=== PATIENT | male | born 1990 | race Caucasian/White ===

== ENCOUNTER → 2016-12-22 | Outpatient (CLI) | payer OTHER ==
[~2016-12-22] MED LIST: AMIT25TA9 PO; CHOL200010 PO; MULT-506 PO; TOPI50TA16 PO
[2016-12-22 12:06] LABS: BASO % 0.5 %; BASO ABS # 0.03 K/uL (0-0.2); COMPLETE YES; EOS % 1.9 %; HEMATOCRIT 40.3 % (42-52); IG% 0.2 %; LYMPH % 26.4 %; LYMPH ABS # 1.53 K/uL (1.2-3.4); MEAN CELL VOLUME 88.8 fL (80-100); MEAN CORPUSCULAR HEMOGLOBIN 30.4 pg (25-34); MEAN CORPUSCULAR HGB CONC 34.2 g/dl (32-36); MEAN PLATELET VOLUME 10.5 fL (7.4-10.4); MONO % 11.4 %; NEUT % 59.6 %; PLATELET COUNT 304 K/uL (130-400); RED BLOOD COUNT 4.54 M/uL (4.7-6.1); WHITE BLOOD COUNT 5.79 K/uL (4.8-10.8)
[2016-12-22 12:56] LABS: ALT/SGPT 16 U/L (12-78); AST/SGOT 8 U/L (15-37); BLOOD UREA NITROGEN 17 mg/dl (7-18); BUN/CREATININE RATIO 17.8 (10-20); CALCIUM 8.7 mg/dl (8.5-10.1); CARBON DIOXIDE 20 mmol/L (21-32); CHLORIDE 109 mmol/L (98-107); CREATININE 0.95 mg/dl (0.60-1.40); GLUCOSE 98 mg/dl (70-99); SODIUM 140 mmol/L (136-145)
[2016-12-22 13:07] LABS: ALB/GLOB RATIO 1.5 (0.9-2); ALKALINE PHOSPHATASE 73 U/L (45-117); THYROID STIMULATING HORMONE 0.718 uIu/ml (0.300-4.500)
[2016-12-22 15:24] LABS: LYME DISEASE AB IGG NEG (NEG); LYME DISEASE AB IGM NEG (NEG)
== END | disposition home or self-care (01) ==
LOC: C.LABPVFM 07:42
PROVIDERS: ATTEND Nurse Practitioner Family
DX: R53.83 Other fatigue (principal)

== ENCOUNTER → 2017-02-19 | Outpatient (CLI) | payer OTHER ==
[2017-02-19 17:13] LABS: HEMATOCRIT 41.7 % (42-52); MEAN CELL VOLUME 87.4 fL (80-100); MEAN CORPUSCULAR HEMOGLOBIN 28.7 pg (25-34); MEAN CORPUSCULAR HGB CONC 32.9 g/dl (32-36); MEAN PLATELET VOLUME 10.1 fL (7.4-10.4); PLATELET COUNT 318 K/uL (130-400); RED BLOOD COUNT 4.77 M/uL (4.7-6.1); WHITE BLOOD COUNT 9.11 K/uL (4.8-10.8)
== END | disposition home or self-care (01) ==
LOC: C.LABPVFM 14:53
PROVIDERS: ATTEND Nurse Practitioner Family
DX: E55.9 Vitamin D deficiency, unspecified (principal); D64.9 Anemia, unspecified

== ENCOUNTER → 2017-02-28 | Outpatient (CLI) | payer OTHER ==
[2017-02-28 12:43] LABS: TOTAL IRON BINDING CAPACITY 349 mcg/dl (250-450)
== END | disposition home or self-care (01) ==
LOC: C.LABPVFM 08:17
PROVIDERS: ATTEND Nurse Practitioner Family
DX: D64.9 Anemia, unspecified (principal)

== ENCOUNTER → 2017-04-06 | Outpatient (CLI) | payer OTHER | END | disposition home or self-care (01) | LOC: C.LABPVFM 13:53 | PROVIDERS: ATTEND Nurse Practitioner Family | DX: D64.9 Anemia, unspecified (principal) ==

== ENCOUNTER → 2017-04-11 | Outpatient (CLI) | payer OTHER ==
--- NOTE | 2017-04-11 12:16 | DIAGNOSTIC IMAGING REPORT ---
SINUS CT CT DOSE: 619.62 mGy.cm HISTORY: G43.909 Migraine [id number] Recurrent [id number] TECHNIQUE: Multiaxial CT images of the paranasal sinuses were performed and reformatted in the coronal plane without the use of contrast. COMPARISON: None. FINDINGS: The frontal sinuses, sphenoid sinuses, right maxillary sinus, and mastoid air cells are clear. There is mild polypoid mucosal thickening within the floor of the left maxillary sinus and a few of the ethmoid air cells. No fluid levels within the paranasal sinuses The bilateral ostiomeatal units are patent. Right nasal septal deviation with a right-sided nasal spur. Hypertrophy of the left inferior nasal turbinate. The orbits are unremarkable. IMPRESSION: Mild chronic sinus disease as described above. No fluid levels identified. Electronically signed by: Nadir Asher M.D. 04/11/2017 12:15 PM Dictated Date/Time: 04/11/2017 12:11 PM
== END | disposition home or self-care (01) ==
LOC: C.CTS 11:41
PROVIDERS: ATTEND Nurse Practitioner Family
DX: G43.909 Migraine, unspecified, not intractable, without status migrainosus (principal); J32.9 Chronic sinusitis, unspecified

== ENCOUNTER → 2017-04-30 | Outpatient (CLI) | payer OTHER ==
[2017-04-30 12:17] LABS: POTASSIUM 3.6 mmol/L (3.5-5.1)
[2017-04-30 12:19] LABS: BASO % 0.3 %; BASO ABS # 0.03 K/uL (0-0.2); COMPLETE YES; EOS % 2.7 %; HEMATOCRIT 40.3 % (42-52); IG% 0.3 %; LYMPH % 26.6 %; LYMPH ABS # 2.36 K/uL (1.2-3.4); MEAN CELL VOLUME 86.9 fL (80-100); MEAN CORPUSCULAR HEMOGLOBIN 28.7 pg (25-34); MEAN PLATELET VOLUME 9.8 fL (7.4-10.4); MONO % 16.8 %; NEUT % 53.3 %; PLATELET COUNT 372 K/uL (130-400); RED BLOOD COUNT 4.64 M/uL (4.7-6.1); WHITE BLOOD COUNT 8.86 K/uL (4.8-10.8)
[2017-04-30 12:38] LABS: PARTIAL THROMBOPLASTIN RATIO 1.2; PROTHROMBIN TIME (PATIENT) 10.7 SECONDS (9.0-12.0)
== END | disposition home or self-care (01) ==
LOC: C.LABPVFM 07:51
PROVIDERS: ATTEND Physician Assistant
DX: Z01.818 Encounter for other preprocedural examination (principal)

== ENCOUNTER → 2017-05-14 | Day surgery (SDC) | payer OTHER ==
[2017-05-03 08:28] VITALS: Ht 185.4 cm; Wt 77.3 kg
[~2017-05-14] VITALS: Ht 185.4 cm; Wt 77.3 kg
[~2017-05-14] MED LIST changes: +ATROPINE SULFATE 0.1 MG/ML 5ML SYR IV PRN; +CEFAZOLIN 2000 MG/60 ML D5W IV SCH; +DEXAMETHASONE SOD INJ 4 MG/ML VIAL ONE; +EpHEDrine SULFATE INJ 50 MG/ML AMP IV PRN; +EpINEphrine INJ 1MG/ML AMP 1 MG/ML AMP ONE; +FENTANYL CITRATE INJ 50 MCG/1 ML 2 ML VIAL IV PRN; +FENTANYL CITRATE INJ 50 MCG/1 ML 2 ML VIAL ONE; +HYDROCODONE/ACETAMOPHEN 5/325MG TAB PO PRN; +LACTATED RINGER'S 1000ML 1,000 ML IV SCH; +LIDOCAINE 4% MPF SOAK 5 ML = 1 DOSE TOP ONE; +LIDOCAINE/EPINEPHRINE 1% INJ 50 ML VIAL ONE; +MIDAZOLAM HCL 1 MG/ML 2ML VIAL ONE; +ONDANSETRON INJ 2 MG/ML 2 ML VIAL IV PRN; +ONDANSETRON INJ 2 MG/ML 2 ML VIAL ONE; +OXYMETAZOLINE HCL 0.05% NA SPR 15 ML BTL PRN; +OXYMETAZOLINE HCL 0.05% NA SPR 15 ML BTL SCH; +PROMETHAZINE HCL INJ 6.25 MG in SODIUM CHLORIDE 0.9% 50ML 50 ML IV PRN; +PROPOFOL IV EMULSION 10 MG/ML 20 ML VIAL IV ONE; +SUCCINYLCHOLINE CHLORIDE 20 MG/ML 10 ML VIAL IV ONE; -TOPI50TA16 PO
--- NOTE | 2017-05-14 09:51 | History & Physical Bridge - SC ---
H&P Re-Evaluation Bridge Note: I have examined the patient, reviewed the History & Physical and in the interval since the performance of the History & Physical I have noted the following changes of clinical significance: No changes noted
--- NOTE | 2017-05-14 11:05 | [facility] Operative Report ---
Operative Report Operative Date May 14, 2017. Pre-Operative Diagnosis Deviated Septum, Hypertrophy of Nasal Turbinates Post-Operative Diagnosis Same Procedure(s) Performed Septoplasty, Bilateral Inferior Turbinate Reduction Surgeon Dr. Paulino Compliance Review Specialist Surgeon(s) None Estimated Blood Loss 15 mL Findings 1. SEVERE R DNS WITH 100% NASAL OBSTRUCTION ON R SIDE 2. SEVERE L>R ITH Specimens None I attest to the content of the Intraoperative Record and any orders documented therein. Any exceptions are noted below.
--- NOTE | 2017-05-14 11:07 | Discharge Instructions ---
Discharge Instructions Date of Service May 14, 2017. Admission Reason for Admission: Deviated Septum, Hypertrophy Nasal Turbinates Discharge Discharge Diagnosis / Problem: SAME Discharge Goals Goal(s): Therapeutic intervention Activity Recommendations Activity Limitations: as noted below 1. NO LIFTING > OR = 15LBS FOR 2WEEKS 2. NO NOSE BLOWING FOR 2WEEKS 3. NO DRIVING WHILE ON NORCO . Current Hospital Diet Patient's current hospital diet: Discharge Diet Recommended Diet: Regular Diet Procedures Procedures Performed: Septoplasty, Bilateral Inferior Turbinate Reduction Pending Studies Studies pending at discharge: no Medical Emergencies . Who to Call and When: Medical Emergencies: If at any time you feel your situation is an emergency, please call 911 immediately. . Non-Emergent Contact Non-Emergency issues call your: Surgeon . . "Provider Documentation" section prepared by Fco Paulino. . VTE Core Measure Inpt VTE Proph given/why not?: SCD's
[2017-05-14 12:07] VITALS: BP 117/76; PULSE 99; TEMP 37.3; O2SAT 97
--- NOTE | 2017-05-14 12:22 | Anesthesia Progress Nt - [facility] ---
Anesthesia Post Op Note Date & Time May 14, 2017 at 12:22 Vital Signs Pain Intensity: 1 Vital Signs Past 12 Hours Date Time Temp Pulse Resp B/P (MAP) Pulse Ox O2 Delivery O2 Flow Rate FiO2 05/14/17 12:07 37.3 99 117/76 (90) 97 Room Air 05/14/17 11:49 109 13 05/14/17 11:49 109 13 98 05/14/17 11:47 37.2 102 15 131/83 96 Room Air 05/14/17 11:46 131/83 05/14/17 11:44 105 13 05/14/17 11:44 106 13 96 05/14/17 11:41 126/82 05/14/17 11:39 101 16 05/14/17 11:39 99 16 100 05/14/17 11:36 123/72 05/14/17 11:34 95 15 05/14/17 11:34 95 15 100 05/14/17 11:31 127/75 05/14/17 11:29 96 16 05/14/17 11:29 97 16 100 05/14/17 11:26 127/78 05/14/17 11:24 103 19 05/14/17 11:24 102 19 100 05/14/17 11:21 134/82 05/14/17 11:19 119 10 100 05/14/17 11:19 118 10 05/14/17 11:16 131/78 05/14/17 11:15 120/86 05/14/17 11:14 118 99 05/14/17 11:14 37.0 117 15 120/86 100 Humidified Oxygen 6 Mask 05/14/17 11:14 118 05/14/17 09:07 36.9 95 16 123/80 (94) 97 Room Air Notes Mental Status: alert / awake / arousable, participated in evaluation Pt Amnestic to Procedure: Yes Nausea / Vomiting: adequately controlled Pain: adequately controlled Airway Patency, RR, SpO2: stable & adequate BP & HR: stable & adequate Hydration State: stable & adequate Anesthetic Complications: no major complications apparent
--- NOTE | 2017-05-14 13:57 | OPERATIVE REPORT ---
DATE OF OPERATION: 05/14/2017 PREOPERATIVE DIAGNOSES: 1. Right septal deviation. 2. Left greater than right inferior turbinate hypertrophy. POSTOPERATIVE DIAGNOSES: 1. Right septal deviation. 2. Left greater than right inferior turbinate hypertrophy. PROCEDURES: 1. Septoplasty. 2. Bilateral inferior turbinate outfracture and turbinoplasties. SURGEON: Dr. Paulino. ANESTHESIA: General endotracheal. ESTIMATED BLOOD LOSS: 15 mL. FINDINGS: 1. Severe right nasal septal deviation with 100% obstruction of the nasal airway from the bony and cartilaginous septal deviation. 2. Left greater than right inferior turbinate hypertrophy. SPECIMENS: None. COMPLICATIONS: None. INDICATIONS FOR THE PROCEDURE: The patient is a 26-year-old male with a history of right nasal airway obstruction which has been unresponsive to maximum medical therapy. He had a CT scan of the sinuses which showed severe right septal deviation with both bony and cartilaginous deviation as well as severe left greater than right inferior turbinate hypertrophy. He presents for the above-mentioned procedures on an outpatient elective basis. DESCRIPTION OF PROCEDURE: After informed consent had been obtained from the patient, the patient was wheeled to the operating room and placed on the operating table in the supine position. Monitors were placed. After induction of general endotracheal anesthesia, the patient was prepped in the usual fashion for septoplasty. 1% lidocaine with 1:100,000 epinephrine was used to inject the nasal septum bilaterally, thereby performing hydrodissection of the mucoperichondrial and mucoperiosteal flaps. Lidocaine and epinephrine pledgets were then placed in the bilateral nasal cavities and pressure applied. After allowing adequate time for vasoconstriction and anesthesia, the pledgets were removed and a #15 scalpel was used to make a left hemitransfixion incision through which the left-sided mucoperichondrial and mucoperiosteal flap was elevated. A #15 scalpel was then used to incise the quadrangular cartilage with care to preserve a 1 cm dorsal and caudal strut and the right-sided mucoperichondrial and mucoperiosteal flap was elevated through this cartilaginous incision. A Ten swivel knife was then used to remove the deviated portions of quadrangular cartilage. A V shaped osteotome, mallet, and Miguelangel forceps was then used to remove a large bony septal spur which was impinging on the airway to the right hand side inferiorly and posteriorly. As much septal cartilage was removed inferiorly as well, but 1 cm dorsal and caudal strut needed to be maintained for adequate nasal support. There was a mild amount of nasal septal deviation anteriorly due to the caudal deflection of the septum but his nasal airway was markedly improved after the above-mentioned procedures were done. The septal cavity was then suctioned. The left hemitransfixion incision was closed with several simple interrupted 4-0 chromic sutures. A 4-0 plain gut suture on a Ronan needle was then used to perform a quilting stitch of the mucoperichondrial and mucoperiosteal flaps bilaterally to help prevent septal hematoma. A Nicholson elevator was then used to infracture and subsequently outfracture the inferior turbinates bilaterally. The inferior turbinates were injected with 1% lidocaine with 1:100,000 epinephrine. A 2.0 mm turbinate blade using powered instrumentation was then used to perform bilateral inferior turbinoplasties in a submucosal fashion. Nasal cavities and nasopharynx were then suctioned. An orogastric tube was placed and the stomach was suctioned free of air and stomach contents. This marked the end of the case. The patient tolerated the procedure well. There were no apparent complications. The patient was extubated and transferred to recovery room in stable condition. I attest to the content of the Intraoperative Record and any orders documented therein. Any exception s are noted below.
== END | disposition home or self-care (01) ==
LOC: X.SURG 08:21
DX: J34.2 Deviated nasal septum (principal); J34.3 Hypertrophy of nasal turbinates; N18.9 Chronic kidney disease, unspecified; Z98.818 Other dental procedure status; Z83.79 Family history of other diseases of the digestive system; Z82.49 Family history of ischemic heart disease and other diseases of the circulatory system; Z83.3 Family history of diabetes mellitus; Z84.1 Family history of disorders of kidney and ureter; Z83.6 Family history of other diseases of the respiratory system

== ENCOUNTER 2018-02-11 07:13 | Emergency (ER) | payer OTHER ==
[~2018-02-11] VITALS: Ht 182.9 cm; Wt 79.5 kg
[~2018-02-11 07:13] MED LIST changes: -ATROPINE SULFATE 0.1 MG/ML 5ML SYR IV PRN; -CEFAZOLIN 2000 MG/60 ML D5W IV SCH; -DEXAMETHASONE SOD INJ 4 MG/ML VIAL ONE; -EpHEDrine SULFATE INJ 50 MG/ML AMP IV PRN; -EpINEphrine INJ 1MG/ML AMP 1 MG/ML AMP ONE; -FENTANYL CITRATE INJ 50 MCG/1 ML 2 ML VIAL IV PRN; -FENTANYL CITRATE INJ 50 MCG/1 ML 2 ML VIAL ONE; -HYDROCODONE/ACETAMOPHEN 5/325MG TAB PO PRN; -LACTATED RINGER'S 1000ML 1,000 ML IV SCH; -LIDOCAINE 4% MPF SOAK 5 ML = 1 DOSE TOP ONE; -LIDOCAINE/EPINEPHRINE 1% INJ 50 ML VIAL ONE; -MIDAZOLAM HCL 1 MG/ML 2ML VIAL ONE; -ONDANSETRON INJ 2 MG/ML 2 ML VIAL IV PRN; -ONDANSETRON INJ 2 MG/ML 2 ML VIAL ONE; -OXYMETAZOLINE HCL 0.05% NA SPR 15 ML BTL PRN; -OXYMETAZOLINE HCL 0.05% NA SPR 15 ML BTL SCH; -PROMETHAZINE HCL INJ 6.25 MG in SODIUM CHLORIDE 0.9% 50ML 50 ML IV PRN; -PROPOFOL IV EMULSION 10 MG/ML 20 ML VIAL IV ONE; -SUCCINYLCHOLINE CHLORIDE 20 MG/ML 10 ML VIAL IV ONE
[2018-02-11 07:16] VITALS: TEMP 36.5; Ht 182.9 cm; Wt 79.5 kg
[2018-02-11] MEDS ORDERED: SODIUM CHLORIDE 0.9% 1000ML 1,000 ML IV STA (07:22)
[2018-02-11] MEDS ORDERED: ONDANSETRON INJ 2 MG/ML 2 ML VIAL IV STA (07:22)
[2018-02-11] MEDS ORDERED: KETOROLAC TROMETHAMINE 30 MG/ML VIAL IV STA (07:22)
[2018-02-11] MEDS ORDERED: MoRPHine SULFATE 4 MG/ML 1 ML CARP\\VIAL IV STA (07:26)
[2018-02-11 07:43] LABS: BASO % 0.2 %; BASO ABS # 0.03 K/uL (0-0.2); EOS ABS # 0.12 K/uL (0-0.5); HEMATOCRIT 41.3 % (42-52); HEMOGLOBIN 13.7 g/dL (14.0-18.0); IG# 0.06 K/uL (0.00-0.02); LYMPH % 12.7 %; LYMPH ABS # 1.58 K/uL (1.2-3.4); MEAN CELL VOLUME 83.8 fL (80-100); MEAN CORPUSCULAR HEMOGLOBIN 27.8 pg (25-34); MEAN CORPUSCULAR HGB CONC 33.2 g/dl (32-36); MEAN PLATELET VOLUME 9.6 fL (7.4-10.4); NEUT % 77.6 %; PLATELET COUNT 354 K/uL (130-400); RED CELL DISTRIBUTION WIDTH CV 14.3 % (11.5-14.5); RED CELL DISTRIBUTION WIDTH SD 43.9 fL (36.4-46.3); WHITE BLOOD COUNT 12.49 K/uL (4.8-10.8)
--- NOTE | 2018-02-11 07:49 | DIAGNOSTIC IMAGING REPORT ---
CHEST ONE VIEW PORTABLE CLINICAL HISTORY: ABDOMINAL PAIN/GI pain. Nausea. COMPARISON STUDY: No previous studies for comparison. FINDINGS: The bones soft tissues and hemidiaphragms are normal. The cardiomediastinal silhouette is normal. The lungs are clear. The pulmonary vasculature is normal. IMPRESSION: Negative chest. The above report was generated using voice recognition software. It may contain grammatical, syntax or spelling errors. Electronically signed by: Suman Gonzalez M.D. 02/11/2018 7:48 AM Dictated Date/Time: 02/11/2018 7:47 AM
[2018-02-11 07:54] LABS: PTT PATIENT 28.5 SECONDS (21.0-31.0)
[2018-02-11 08:01] LABS: CALCIUM 9.1 mg/dl (8.5-10.1); CREATININE 0.89 mg/dl (0.60-1.40); POTASSIUM 3.9 mmol/L (3.5-5.1)
[2018-02-11 08:04] LABS: TOTAL PROTEIN 7.9 gm/dl (6.4-8.2)
[2018-02-11] MEDS ORDERED: MELA1TAB5 PO (08:07)
[2018-02-11] MEDS ORDERED: VITACAP26 (08:07)
[2018-02-11] MEDS ORDERED: MAGN250T8 (08:07)
[2018-02-11] MEDS ORDERED: ONDA4TAB10 SL (09:13)
--- NOTE | 2018-02-11 09:14 | EMERGENCY ROOM VISIT NOTE ---
History Report prepared by Sparkle: Junito García Under the Supervision of: Dr. Vasu Brito D.O. First contact with patient: 07:21 Chief Complaint: ABDOMINAL PAIN Stated Complaint: ABDOMINAL PAIN Nursing Triage Summary: pt reports severe abdominal pain diffusely that started at 1300 1 day ago NV all night.. History of Present Illness The patient is a 27 year old male who presents to the Emergency Room with complaints of constant diffuse abdominal pain beginning yesterday. He describes his pain as a "cramping" sensation. His pain worsened throughout the day yesterday. The patient also complains of bilateral testicular pain, mild low back pain, nausea and vomiting. He had diarrhea and one episode of vomiting two days ago. He estimates that he has vomited four times in the past few hours. The patient denies known sick contacts. He states that he has had very little to eat for the past two days. He states that all he has eaten has been bread sticks. The patient has a history of kidney stones, but states that his symptoms feel a bit different. He denies testicular swelling. Source of History: patient Onset: yesterday Position: abdomen (diffuse) Quality: cramping Timing: constant, worsening Associated Symptoms: + nausea, + vomiting, + back pain (mild low) Note: Additional symptoms: bilateral testicular swelling. He denies testicular swelling. Review of Systems See HPI for pertinent positives & negatives. A total of 10 systems reviewed and were otherwise negative. Past Medical & Surgical Medical Problems: (1) Kidney stone (2) Migraines Family History Cancer Diabetes mellitus Hypertension Kidney stones Social History Smoking Status: Never Smoker Alcohol Use: occasionally Drug Use: none Marital Status: single Housing Status: lives with family Occupation Status: student Current/Historical Medications Scheduled Cholecalciferol (Vitamin D), 1 CAP PO HS Melatonin (Kp Melatonin), 1 TAB PO HS Multivitamin (Multivitamin), 1 TAB PO HS Ondasetron Odt (Zofran Odt), 4 MG SL Q6H Miscellaneous Medications Magnesium Oxide (Mg Supplement (Magnesium) Vitamins C & E (Vitamin C) Allergies Coded Allergies: Codeine (Verified Adverse Reaction, Unknown, VOMITING AND ITCHING, 02/11/18 ) Physical Exam Vital Signs Date Time Temp Pulse Resp B/P (MAP) Pulse Ox O2 Delivery O2 Flow Rate FiO2 02/11/18 09:31 70 16 115/69 97 02/11/18 08:31 63 16 105/71 97 Room Air 02/11/18 07:16 36.5 83 20 137/84 100 Room Air Physical Exam CONSTITUTIONAL/VITAL SIGNS: Reviewed / noted above. GENERAL: Non-toxic in appearance. INTEGUMENTARY: Warm, dry, and [place]. HEAD: Normocephalic. EYES: without scleral icterus or trauma. ENT/OROPHARYNX: clear and moist. LYMPHADENOPATHY/NECK: Is supple without lymphadenopathy or meningismus. RESPIRATORY: Lungs clear and equal. CARDIOVASCULAR: Regular rate and rhythm. GI/ABDOMEN: Soft and nontender. No organomegaly or pulsatile mass. No rebound or guarding. Normal bowel sounds. EXTREMITIES: Warm and well perfused. BACK: No CVA tenderness. NEUROLOGICAL: Intact without focal deficits. PSYCHIATRIC: normal affect. MUSCULOSKELETAL: Normally developed with good muscle tone. Medical Decision & Procedures ER Provider Diagnostic Interpretation: Radiology results as stated below per my review and radiologist interpretation: CHEST ONE VIEW PORTABLE FINDINGS: The bones soft tissues and hemidiaphragms are normal. The cardiomediastinal silhouette is normal. The lungs are clear. The pulmonary vasculature is normal. IMPRESSION: Negative chest. The above report was generated using voice recognition software. It may contain grammatical, syntax or spelling errors. Electronically signed by: Suman Gonzalez M.D. 02/11/2018 7:48 AM Laboratory Results 02/11/18 07:30 Red Blood Count 4.93, Mean Corpuscular Volume 83.8, Mean Corpuscular Hemoglobin 27.8, Mean Corpuscular Hemoglobin Concent 33.2, Mean Platelet Volume 9.6, Neutrophils (%) (Auto) 77.6, Lymphocytes (%) (Auto) 12.7, Monocytes (%) (Auto) 8.0, Eosinophils (%) (Auto) 1.0, Basophils (%) (Auto) 0.2, Neutrophils # (Auto) 9.70, Lymphocytes # (Auto) 1.58, Monocytes # (Auto) 1.00, Eosinophils # (Auto) 0.12, Basophils # (Auto) 0.03 02/11/18 07:30 Test 02/11/18 07:30 White Blood Count 12.49 K/uL (4.8-10.8) Red Blood Count 4.93 M/uL (4.7-6.1) Hemoglobin 13.7 g/dL (14.0-18.0) Hematocrit 41.3 % (42-52) Mean Corpuscular Volume 83.8 fL (80-100) Mean Corpuscular Hemoglobin 27.8 pg (25-34) Mean Corpuscular Hemoglobin Concent 33.2 g/dl (32-36) Platelet Count 354 K/uL (130-400) Mean Platelet Volume 9.6 fL (7.4-10.4) Neutrophils (%) (Auto) 77.6 % Lymphocytes (%) (Auto) 12.7 % Monocytes (%) (Auto) 8.0 % Eosinophils (%) (Auto) 1.0 % Basophils (%) (Auto) 0.2 % Neutrophils # (Auto) 9.70 K/uL (1.4-6.5) Lymphocytes # (Auto) 1.58 K/uL (1.2-3.4) Monocytes # (Auto) 1.00 K/uL (0.11-0.59) Eosinophils # (Auto) 0.12 K/uL (0-0.5) Basophils # (Auto) 0.03 K/uL (0-0.2) RDW Standard Deviation 43.9 fL (36.4-46.3) RDW Coefficient of Variation 14.3 % (11.5-14.5) Immature Granulocyte % (Auto) 0.5 % Immature Granulocyte # (Auto) 0.06 K/uL (0.00-0.02) Prothrombin Time 10.9 SECONDS (9.0-12.0) Prothromb Time International Ratio 1.0 (0.9-1.1) Activated Partial Thromboplast Time 28.5 SECONDS (21.0-31.0) Partial Thromboplastin Ratio 1.1 Anion Gap 8.0 mmol/L (3-11) Est Creatinine Clear Calc Drug Dose 135.7 ml/min Estimated GFR () 134.9 Estimated GFR (Non- 116.4 BUN/Creatinine Ratio 13.5 (10-20) Calcium Level 9.1 mg/dl (8.5-10.1) Total Bilirubin 0.5 mg/dl (0.2-1) Direct Bilirubin 0.1 mg/dl (0-0.2) Aspartate Amino Transf (AST/SGOT) 21 U/L (15-37) Alanine Aminotransferase (ALT/SGPT) 21 U/L (12-78) Alkaline Phosphatase 115 U/L (45-117) Total Protein 7.9 gm/dl (6.4-8.2) Albumin 4.0 gm/dl (3.4-5.0) Lipase 77 U/L (73-393) Laboratory results as stated above per my review. Medications Administered Medications (Trade) Dose Ordered Sig/Tosha Route Start Time Stop Time Status Last Admin Dose Admin Sodium Chloride 1,000 ml @ 999 mls/hr Q1H1M STAT IV 02/11/18 07:22 02/11/18 08:22 DC 02/11/18 07:31 999 MLS/HR Ondansetron HCl (Zofran Inj) 4 mg NOW STAT IV 02/11/18 07:22 02/11/18 07:23 DC 02/11/18 07:32 4 MG Ketorolac Tromethamine (Toradol Inj) 30 mg NOW STAT IV 02/11/18 07:22 02/11/18 07:23 DC 02/11/18 07:32 30 MG Morphine Sulfate (MoRPHine SULFATE INJ) 4 mg NOW STAT IV 02/11/18 07:26 02/11/18 07:28 DC 02/11/18 07:33 4 MG ED Course 0724: Previous medical records were reviewed. The patient was evaluated in room B6. A complete history and physical examination was performed. 0722: Ordered Toradol Inj 30 mg IV, Zofran 4 mg IV, Sodium Chloride 1000 ml @ 999 mls/hr IV. 0726: Ordered Morphine Sulfate 4 mg IV. 0915: On reevaluation, the patient is resting comfortably. I discussed the results and findings with the patient. He verbalized agreement of the treatment plan. The patient was discharged home. Medical Decision Differential diagnosis: Etiologies such as gastroenteritis, food borne illness, infections, appendicitis , diverticulitis, inflammatory bowel disease, obstruction, GI bleed, biliary pathology, as well as others were entertained. This is a 19-year-old male who presents to the ED with a chief complaint of vomiting, diarrhea and abdominal cramps. The patient states that his symptoms started Sunday evening with some diarrhea and vomiting. He has not had diarrhea since yesterday. He reports around noon he developed bad abdominal cramps and vomiting. He has vomited about 4 times in the last 24 hours. The patient denies any other significant symptoms. He has not had a fever. No chest pains or shortness of breath. No back pains. His physical exam revealed no focal abdominal tenderness. His exam is otherwise unremarkable. His white blood cell count was slightly elevated 12.5. Complete metabolic panel was unremarkable. Glucose was slightly elevated. Lipase and chest x-ray are negative. The patient was treated with IV fluids, IV Toradol and IV Zofran as well as IV morphine. He was reassessed. His symptoms do seem to be improving. He was felt to be stable for discharge. He will be discharged on Zofran ODT. Medication Reconcilliation Current Medication List: was personally reviewed by me Blood Pressure Screening Patient's blood pressure: Normal blood pressure Blood pressure disposition: Did not require urgent referral Impression Primary Impression: Nausea vomiting and diarrhea Additional Impression: Abdominal cramping Scribe Attestation The scribe's documentation has been prepared under my direction and personally reviewed by me in its entirety. I confirm that the note above accurately reflects all work, treatment, procedures, and medical decision making performed by me. Departure Information Dispostion Home / Self-Care Prescriptions Ondasetron Odt (ZOFRAN ODT) 4 Mg Tab 4 MG SL Q6H for Nausea, #15 TAB Prov: Vasu Brito D.O. 02/11/18 Referrals No Doctor, Assigned (PCP) Patient Instructions ED Diet Vomiting Diarrhea, [facility] Additional Instructions Zofran: Allow one tablet to dissolve under the tongue every 6 hours as needed for nausea or vomiting. Follow-up with your doctor for further care and evaluation in 1-2 days. Return to the emergency department for worsening or new symptoms or any concerns. You have been examined and treated today on an emergency basis only. This is not a substitute for, or an effort to provide, complete comprehensive medical care. It is impossible to recognize and treat all injuries or illnesses in a single emergency department visit. It is therefore important that you follow up closely with your doctor. Call as soon as possible for an appointment. Problem Qualifiers
[2018-02-11 09:31] VITALS: BP 115/69; PULSE 70; O2SAT 97
[2018-02-12] MEDS ORDERED: IBUP-1050 PO (14:41)
== END 2018-02-11 09:32 | disposition home or self-care (01) ==
LOC: C.EDB 07:14
DX: R11.2 Nausea with vomiting, unspecified (principal); R19.7 Diarrhea, unspecified; R10.84 Generalized abdominal pain; E78.1 Pure hyperglyceridemia; N50.811 Right testicular pain; N50.812 Left testicular pain; M54.5 Low back pain; Z88.6 Allergy status to analgesic agent; Z83.3 Family history of diabetes mellitus; Z82.49 Family history of ischemic heart disease and other diseases of the circulatory system; Z84.1 Family history of disorders of kidney and ureter

== ENCOUNTER 2018-02-12 13:39 | Observation (INO) | payer OTHER ==
[2018-02-12] VITALS (7 sets, daily range): BP systolic 112–132; BP diastolic 67–82; PULSE 75–109; TEMP 36.6–36.9; O2SAT 93–97; Ht 182.9 cm; Wt 78.1 kg
[~2018-02-12] VITALS: Ht 182.9 cm; Wt 78.1 kg
[~2018-02-12 13:39] MED LIST changes: -AMIT25TA9 PO; +MAGN250T8; +MELA1TAB5 PO; +ONDA4TAB10 SL; +VITACAP26
[2018-02-12] MEDS ORDERED: SODIUM CHLORIDE 0.9% 1000ML 1,000 ML IV STA ×2 (14:27→15:40)
[2018-02-12] MEDS ORDERED: ONDANSETRON INJ 2 MG/ML 2 ML VIAL IV STA (14:27)
[2018-02-12] MEDS ORDERED: MoRPHine SULFATE 10 MG/ML CARP/VIAL IV STA (14:27)
[2018-02-12] MEDS ORDERED: MoRPHine SULFATE 4 MG/ML 1 ML CARP\\VIAL ONE (14:36)
[2018-02-12 14:37] LABS: BASO % 0.1 %; BASO ABS # 0.02 K/uL (0-0.2); EOS % 0.3 %; EOS ABS # 0.05 K/uL (0-0.5); HEMATOCRIT 40.2 % (42-52); HEMOGLOBIN 13.4 g/dL (14.0-18.0); IG# 0.04 K/uL (0.00-0.02); LYMPH % 9.6 %; LYMPH ABS # 1.39 K/uL (1.2-3.4); MEAN CELL VOLUME 83.8 fL (80-100); MEAN CORPUSCULAR HEMOGLOBIN 27.9 pg (25-34); MEAN CORPUSCULAR HGB CONC 33.3 g/dl (32-36); MEAN PLATELET VOLUME 9.3 fL (7.4-10.4); MONO % 9.5 %; MONO ABS # 1.38 K/uL (0.11-0.59); NEUT % 80.2 %; NEUT ABS # 11.67 K/uL (1.4-6.5); PLATELET COUNT 279 K/uL (130-400); RED CELL DISTRIBUTION WIDTH CV 14.3 % (11.5-14.5); WHITE BLOOD COUNT 14.55 K/uL (4.8-10.8)
[2018-02-12] MEDS ORDERED: IBUP-1050 PO (14:41)
[2018-02-12] MEDS ORDERED: OPTIRAY 320 IV PRN (14:45)
--- NOTE | 2018-02-12 14:45 | EMERGENCY ROOM VISIT NOTE ---
History Report prepared by Sparkle: Seven Graham Under the Supervision of: Dr. Kun Shirley M.D. First contact with patient: 14:10 Chief Complaint: ABDOMINAL PAIN Stated Complaint: POSSIBLE APPY History of Present Illness The patient is a 27 year old white male with a past medical history of nasal surgery, renal calculi, and lithotripsy and who presents to the ED with a cc of constant abdominal pain beginning two days ago. He rates his discomfort as an 8/ 10 in severity. The patient describes the pain as a stabbing sensation. The patient states he noticed his urine was dark and cloudy two days ago, but reports this resolved shortly after. He states that later in the day, he developed abdominal pain which is worse in the right upper quadrant. The patient states that his pain has been worsened with eating and drinking. He states that he came to the ED yesterday when he was given Morphine and discharged home. The patient states that the Morphine helped alleviate his pain mildly, but reports he was still in some discomfort. The patient states that his last bowel movement was two days ago. Positive passing gas, increased burping. Negative sick contact, recent antibiotic use, burning to urinate, blood in urine, recent long travel, vomiting. Source of History: patient Onset: two days ago Position: abdomen Symptom Intensity: 8/10 Quality: stabbing Timing: constant Modifying Factors (Worsening): eating, drinking Modifying Factors (Relieving): other (Morphine) Associated Symptoms: No vomiting, No urinary symptoms Note: Positive passing gas, increased burping. Negative sick contact, recent antibiotic use, recent long travel. Review of Systems See HPI for pertinent positives and negatives. A total of ten systems were reviewed and were otherwise negative. Past Medical & Surgical Medical Problems: (1) Kidney stone (2) Migraines Family History Cancer Diabetes mellitus Hypertension Kidney stones Social History Smoking Status: Never Smoker Alcohol Use: occasionally Drug Use: none Marital Status: single Housing Status: lives with family Occupation Status: student Current/Historical Medications Scheduled Cholecalciferol (Vitamin D), 1 CAP PO HS Melatonin (Kp Melatonin), 1 TAB PO HS Multivitamin (Multivitamin), 1 TAB PO HS Ondasetron Odt (Zofran Odt), 4 MG SL Q6H Miscellaneous Medications Ibuprofen (Advil), 200 MG PO Magnesium Oxide (Mg Supplement (Magnesium) Vitamins C & E (Vitamin C) Allergies Coded Allergies: Codeine (Verified Adverse Reaction, Unknown, VOMITING AND ITCHING, 02/11/18 ) Physical Exam Vital Signs Date Time Temp Pulse Resp B/P (MAP) Pulse Ox O2 Delivery O2 Flow Rate FiO2 02/12/18 15:21 101 02/12/18 15:18 91 20 119/72 98 Room Air 02/12/18 13:50 36.3 101 18 127/81 96 Room Air Physical Exam GENERAL: Awake, alert, well-appearing, NAD HENT: Normocephalic, atraumatic. EYES: Normal conjunctiva. Sclera non-icteric. NECK: Supple. No nuchal rigidity. FROM. RESPIRATORY: CTAB, no rhonchi, wheezing, crackles CARDIAC: RRR, no MRG ABDOMEN: Soft, RUQ tenderness, ND, BS+, positive Rovsing's, positive obturator's , positive psoas. MSK: No chest wall TTP, no LE edema, no CVA TTP. NEURO: GCS 15, CN 2-12 intact, moves all 4s on command SKIN: No rash or jaundice noted. Medical Decision & Procedures ER Provider Diagnostic Interpretation: Radiology results as stated below per my review and radiologist interpretation: CHEST ONE VIEW PORTABLE HISTORY: 27 years-old Male ABDOMINAL PAIN/GI acute generalized abdominal pain with acute appendicitis COMPARISON: Chest radiograph 02/11/2018 TECHNIQUE: Portable AP view of the chest FINDINGS: Cardiomediastinal and hilar silhouettes are within normal limits. No pneumothorax, pleural effusion, focal airspace consolidation or overt pulmonary edema. The bones of the chest appear grossly intact. IMPRESSION: No acute process. The above report was generated using voice recognition software. It may contain grammatical, syntax or spelling errors. Electronically signed by: Lalo Lee M.D. 02/12/2018 3:30 PM Dictated Date/Time: 02/12/2018 3:29 PM ABDOMEN AND PELVIS CT WITH IV CONTRAST CT DOSE: 382.59 mGy.cm HISTORY: Acute nausea, vomiting and right lower quadrant abdominal pain +ob, +psoas, +rovsing, nausea, vomting, anorexia, RLQ TTP TECHNIQUE: Multiaxial CT images of the abdomen and pelvis were performed following the use of intravenous contrast. A dose lowering technique was utilized adhering to the principles of ALARA. COMPARISON STUDY: CT abdomen and pelvis 03/15/2015. FINDINGS: Respiratory motion mildly limits evaluation of the lung bases. There is mild dependent subsegmental bibasilar atelectasis. There is no pneumatosis or pneumoperitoneum identified. The imaged inferior cardiac chambers are unremarkable. The liver, gallbladder, spleen, pancreas and adrenal glands are unremarkable. Nonobstructing 5 mm calculus of the inferior pole left kidney. Low attenuating 4 mm lesion of the inferior pole left kidney suggests renal cyst. No ureteral calculi or obstructive uropathy. Urinary bladder is partially decompressed. Aorta is normal in course and caliber. No bulky adenopathy. No bowel obstruction. She loops of prominent air-filled small bowel are scattered throughout the abdomen suggesting ileus. The fluid-filled appendix is dilated measuring up to 1.5 cm transversely and demonstrates wall thickening with mucosal hyperemia. Moderate to extensive periappendiceal inflammatory stranding is noted with mild adjacent nonenlarged lymph nodes which are likely reactive. 8 mm appendicolith is noted within the mid appendiceal lumen. Likely reactive wall thickening of the cecum. No drainable fluid collection. Trace free fluid tracks along the right pericolic gutter and dependent pelvis. Soft tissues are unremarkable. Mild bilateral gynecomastia. The bones appear to be intact. IMPRESSION: 1. Acute appendicitis with associated obstructing appendicolith. Moderate associated mesenteric edema and trace free fluid without drainable fluid collection or evidence of perforation. 2. Mild associated small bowel ileus. 3. 5 mm nonobstructing calculus of the inferior pole left kidney. Electronically signed by: Lalo Lee M.D. 02/12/2018 3:20 PM Dictated Date/Time: 02/12/2018 3:13 PM Laboratory Results 02/12/18 14:20 Red Blood Count 4.80, Mean Corpuscular Volume 83.8, Mean Corpuscular Hemoglobin 27.9, Mean Corpuscular Hemoglobin Concent 33.3, Mean Platelet Volume 9.3, Neutrophils (%) (Auto) 80.2, Lymphocytes (%) (Auto) 9.6, Monocytes (%) (Auto) 9.5, Eosinophils (%) (Auto) 0.3, Basophils (%) (Auto) 0.1, Neutrophils # (Auto) 11.67, Lymphocytes # (Auto) 1.39, Monocytes # (Auto) 1.38, Eosinophils # (Auto) 0.05, Basophils # (Auto) 0.02 02/12/18 14:20 Test 02/12/18 14:20 02/12/18 14:30 02/12/18 14:50 White Blood Count 14.55 K/uL (4.8-10.8) Red Blood Count 4.80 M/uL (4.7-6.1) Hemoglobin 13.4 g/dL (14.0-18.0) Hematocrit 40.2 % (42-52) Mean Corpuscular Volume 83.8 fL (80-100) Mean Corpuscular Hemoglobin 27.9 pg (25-34) Mean Corpuscular Hemoglobin Concent 33.3 g/dl (32-36) Platelet Count 279 K/uL (130-400) Mean Platelet Volume 9.3 fL (7.4-10.4) Neutrophils (%) (Auto) 80.2 % Lymphocytes (%) (Auto) 9.6 % Monocytes (%) (Auto) 9.5 % Eosinophils (%) (Auto) 0.3 % Basophils (%) (Auto) 0.1 % Neutrophils # (Auto) 11.67 K/uL (1.4-6.5) Lymphocytes # (Auto) 1.39 K/uL (1.2-3.4) Monocytes # (Auto) 1.38 K/uL (0.11-0.59) Eosinophils # (Auto) 0.05 K/uL (0-0.5) Basophils # (Auto) 0.02 K/uL (0-0.2) RDW Standard Deviation 44.0 fL (36.4-46.3) RDW Coefficient of Variation 14.3 % (11.5-14.5) Immature Granulocyte % (Auto) 0.3 % Immature Granulocyte # (Auto) 0.04 K/uL (0.00-0.02) Est Creatinine Clear Calc Drug Dose 140.4 ml/min Estimated GFR () 136.8 Estimated GFR (Non- 118.0 BUN/Creatinine Ratio 13.3 (10-20) Calcium Level 9.0 mg/dl (8.5-10.1) Total Bilirubin 0.8 mg/dl (0.2-1) Direct Bilirubin 0.2 mg/dl (0-0.2) Aspartate Amino Transf (AST/SGOT) 10 U/L (15-37) Alanine Aminotransferase (ALT/SGPT) 19 U/L (12-78) Alkaline Phosphatase 114 U/L (45-117) Total Protein 7.9 gm/dl (6.4-8.2) Albumin 3.9 gm/dl (3.4-5.0) Lipase 66 U/L (73-393) Urine Color DK YELLOW Urine Appearance CLOUDY (CLEAR) Urine pH 6.5 (4.5-7.5) Urine Specific [place] 1.027 (1.000-1.030) Urine Protein 1+ (NEG) Urine Glucose (UA) NEG (NEG) Urine Ketones 3+ (NEG) Urine Occult Blood TRACE (NEG) Urine Nitrite NEG (NEG) Urine Bilirubin NEG (NEG) Urine Urobilinogen NEG (NEG) Urine Leukocyte Esterase NEG (NEG) Urine WBC (Auto) 1-5 /hpf (0-5) Urine RBC (Auto) 10-30 /hpf (0-4) Urine Hyaline Casts (Auto) 5-10 /lpf (0-5) Urine Epithelial Cells (Auto) 20-30 /lpf (0-5) Urine Bacteria (Auto) NEG (NEG) Bedside Hemoglobin 13.3 g/dl (14.0-18.0) Bedside Hematocrit 39 % (42-52) Bedside Sodium 137 mEq/L (135-144) Bedside Potassium 3.8 mEq/L (3.3-5.0) Bedside Chloride 102 mEq/L (101-112) Bedside Total CO2 26 mEq/l (24-31) Anion Gap 14.0 mmol/L (16-25) Bedside Blood Urea Nitrogen 12 mg/dl (7-18) Bedside Creatinine 0.8 mg/dl (0.6-1.3) Bedside Glucose (other) 105 mg/dl (70-99) Bedside Ionized Calcium (Isabel) 1.14 mmol/l (1.12-1.32) Laboratory results reviewed by me Medications Administered Medications (Trade) Dose Ordered Sig/Tosha Route Start Time Stop Time Status Last Admin Dose Admin Sodium Chloride 1,000 ml @ 999 mls/hr Q1H1M STAT IV 02/12/18 14:27 02/12/18 15:27 DC 02/12/18 14:42 999 MLS/HR Ondansetron HCl (Zofran Inj) 4 mg NOW STAT IV 02/12/18 14:27 02/12/18 14:29 DC 02/12/18 14:42 4 MG Morphine Sulfate (MoRPHine SULFATE INJ) 8 mg NOW STAT IV 02/12/18 14:27 02/12/18 14:29 DC 02/12/18 14:44 8 MG ED Course 1424: The patient was evaluated in room A03. A complete history and physical exam was performed. 1539: I discussed the patient's case with Dr. Dumont, [facility] General Surgery. He understands the patient's condition and agrees to accept the patient. The patient will be further evaluated by the surgeon. 1545: I reevaluated the patient and updated him on his results. I discussed the treatment plan, which he agrees to. The patient will be sent to the OR. Medical Decision Prior records/ancillary studies reviewed. Triage Nursing notes reviewed. The patient is a 27 year old white male with a past medical history of nasal surgery, renal calculi, and lithotripsy and who presents to the ED with a cc of constant abdominal pain beginning two days ago. Differential diagnosis: Etiologies such as appendicitis, diverticulitis, PUD, biliary pathology, UTI, pancreatitis, obstruction, mesenteric ischemia, aortic pathology, infections, inflammatory bowel disease, renal colic, as well as others were entertained. Prior records were reviewed. Patient was recently seen yesterday for some abdominal pain. Patient did not have any imaging done and urinalysis. Patient was seen and evaluated the bedside. Patient has noted increasing abdominal discomfort since Sunday. It is been constant. Patient describes generalized discomfort however worse in the right lower quadrant. On exam the patient has a positive obturator's, positive psoas, positive Rovsing's. Patient did have blood work completed along with a CT of the abdomen pelvis. Patient was made n.p.o. and the patient was given IV fluids, antiemetics, and pain medications. Patient does have an elevated white blood cell count of 14,000. This is elevated compared to yesterday. Patient's other blood work fairly unremarkable. Patient CT the abdomen pelvis does show an acute appendicitis with an obstructing appendicolith. Patient also may have a small bowel ileus. Patient also does have a nonobstructing right-sided kidney stone. General surgery was consulted. Patient was still made n.p.o. started on maintenance fluids and was given antibiotics. Patient was admitted by general surgery. Medication Reconcilliation Current Medication List: was personally reviewed by me Blood Pressure Screening Patient's blood pressure: Normal blood pressure Consults Time Called: 1533 Consulting Physician: Dr. Dumont, [facility] General Surgery Returned Call: [phone] I discussed the patient's case with Dr. Dumont, [facility] General Surgery. He understands the patient's condition and agrees to accept the patient. The patient will be further evaluated by the surgeon. Impression Primary Impression: Appendicitis Additional Impression: Ileus Scribe Attestation The scribe's documentation has been prepared under my direction and personally reviewed by me in its entirety. I confirm that the note above accurately reflects all work, treatment, procedures, and medical decision making performed by me. Departure Information Dispostion Being Evaluated By Surgeon Referrals No Doctor, Assigned (PCP) Patient Instructions My [facility] Problem Qualifiers Primary Impression: Appendicitis Appendicitis type: acute appendicitis Acute appendicitis type: with localized peritonitis Qualified Codes: K35.3 - Acute appendicitis with localized peritonitis
[2018-02-12 15:11] LABS: ALBUMIN 3.9 gm/dl (3.4-5.0); CREATININE 0.86 mg/dl (0.60-1.40); POTASSIUM 3.7 mmol/L (3.5-5.1); TOTAL PROTEIN 7.9 gm/dl (6.4-8.2)
--- NOTE | 2018-02-12 15:22 | DIAGNOSTIC IMAGING REPORT ---
ABDOMEN AND PELVIS CT WITH IV CONTRAST CT DOSE: 382.59 mGy.cm HISTORY: Acute nausea, vomiting and right lower quadrant abdominal pain +ob, +psoas, +rovsing, nausea, vomting, anorexia, RLQ TTP TECHNIQUE: Multiaxial CT images of the abdomen and pelvis were performed following the use of intravenous contrast. A dose lowering technique was utilized adhering to the principles of ALARA. COMPARISON STUDY: CT abdomen and pelvis 03/15/2015. FINDINGS: Respiratory motion mildly limits evaluation of the lung bases. There is mild dependent subsegmental bibasilar atelectasis. There is no pneumatosis or pneumoperitoneum identified. The imaged inferior cardiac chambers are unremarkable. The liver, gallbladder, spleen, pancreas and adrenal glands are unremarkable. Nonobstructing 5 mm calculus of the inferior pole left kidney. Low attenuating 4 mm lesion of the inferior pole left kidney suggests renal cyst. No ureteral calculi or obstructive uropathy. Urinary bladder is partially decompressed. Aorta is normal in course and caliber. No bulky adenopathy. No bowel obstruction. She loops of prominent air-filled small bowel are scattered throughout the abdomen suggesting ileus. The fluid-filled appendix is dilated measuring up to 1.5 cm transversely and demonstrates wall thickening with mucosal hyperemia. Moderate to extensive periappendiceal inflammatory stranding is noted with mild adjacent nonenlarged lymph nodes which are likely reactive. 8 mm appendicolith is noted within the mid appendiceal lumen. Likely reactive wall thickening of the cecum. No drainable fluid collection. Trace free fluid tracks along the right pericolic gutter and dependent pelvis. Soft tissues are unremarkable. Mild bilateral gynecomastia. The bones appear to be intact. IMPRESSION: 1. Acute appendicitis with associated obstructing appendicolith. Moderate associated mesenteric edema and trace free fluid without drainable fluid collection or evidence of perforation. 2. Mild associated small bowel ileus. 3. 5 mm nonobstructing calculus of the inferior pole left kidney. Electronically signed by: Lalo Lee M.D. 02/12/2018 3:20 PM Dictated Date/Time: 02/12/2018 3:13 PM
[2018-02-12 15:25] LABS: ISTAT CREATININE 0.8 mg/dl (0.6-1.3); ISTAT IONIZED CALCIUM 1.14 mmol/l (1.12-1.32); ISTAT POTASSIUM 3.8 mEq/L (3.3-5.0)
--- NOTE | 2018-02-12 15:31 | DIAGNOSTIC IMAGING REPORT ---
CHEST ONE VIEW PORTABLE HISTORY: 27 years-old Male ABDOMINAL PAIN/GI acute generalized abdominal pain with acute appendicitis COMPARISON: Chest radiograph 02/11/2018 TECHNIQUE: Portable AP view of the chest FINDINGS: Cardiomediastinal and hilar silhouettes are within normal limits. No pneumothorax, pleural effusion, focal airspace consolidation or overt pulmonary edema. The bones of the chest appear grossly intact. IMPRESSION: No acute process. The above report was generated using voice recognition software. It may contain grammatical, syntax or spelling errors. Electronically signed by: Lalo Lee M.D. 02/12/2018 3:30 PM Dictated Date/Time: 02/12/2018 3:29 PM
[2018-02-12] MEDS ORDERED: CEFOXITIN SOD 2 GM VIAL IV STA (15:40)
[2018-02-12 15:43] LABS: INFLUENZA B ANTIGEN Neg for Influ B (NEG)
[2018-02-12] MEDS ORDERED: MIDAZOLAM HCL 1 MG/ML 2ML VIAL ONE (16:14)
[2018-02-12] MEDS ORDERED: PROPOFOL IV EMULSION 10 MG/ML 20 ML VIAL IV ONE (16:14)
[2018-02-12] MEDS ORDERED: ONDANSETRON INJ 2 MG/ML 2 ML VIAL ONE ×2 (16:14→17:21)
[2018-02-12] MEDS ORDERED: SUCCINYLCHOLINE CHLORIDE 20 MG/ML 10 ML VIAL IV ONE (16:14)
[2018-02-12] MEDS ORDERED: DEXAMETHASONE SOD INJ 4 MG/ML VIAL ONE (16:14)
[2018-02-12] MEDS ORDERED: LIDOCAINE HCL 2% 2 ML VIAL (20MG/ML) ONE (16:14)
[2018-02-12] MEDS ORDERED: FENTANYL CITRATE INJ 50 MCG/1 ML 2 ML VIAL ONE ×2 (16:15→16:50)
--- NOTE | 2018-02-12 16:16 | History and Physical ---
History & Physical Date Feb 12, 2018. History of Present Illness The patient is a 27 year old male with complaints of mid abdominal pain over 2- 3 days that has now progressed to the RLQ. CT c/w acute appendicitis. wbc 14, 000. Past Medical/Surgical History Medical Problems: (1) Kidney stone (2) Migraines Additional History Hepatic Disease: No Endocrine Disorder: No Kidney Disease: kidney stones Hypertension: No Heart Disease: No Bleeding Tendencies: No Infectious Diseases: No Allergies Coded Allergies: Codeine (Verified Adverse Reaction, Unknown, VOMITING AND ITCHING, 02/11/18 ) Home Medications Scheduled Cholecalciferol (Vitamin D), 1 CAP PO HS Melatonin (Kp Melatonin), 1 TAB PO HS Multivitamin (Multivitamin), 1 TAB PO HS Ondasetron Odt (Zofran Odt), 4 MG SL Q6H Miscellaneous Medications Ibuprofen (Advil), 200 MG PO Magnesium Oxide (Mg Supplement (Magnesium) Vitamins C & E (Vitamin C) Physical Examination Skin: warm/dry, no rash Eyes: normal inspection, sclerae normal Head: normocephalic, atraumatic Neck: supple, trachea midline Respiratory/Chest: no respiratory distress Abdomen / GI: + pertinent finding (+RLQ ttp with guarding. no peritoneal signs ) Neurologic/Psych: alert, oriented x 3 Diagnosis acute appendicitis discussed lap/poss open appy discussed risks ( bleeding/infection/dvt/pe/injury to other organs/leaks etc...) questions answered to OR radha.
[2018-02-12] MEDS ORDERED: ACETAMINOPHEN 1000 MG/100 ML IV IV ONE (16:21)
[2018-02-12] MEDS ORDERED: SCOPOLAMINE 1.5 MG TDSY TD ONE (16:30)
[2018-02-12] MEDS ORDERED: BUPIVACAINE/EPINEPHRINE 0.5% MPF 1:200,000 30 ML VIAL ONE (16:42)
[2018-02-12] MEDS ORDERED: IV FLUIDS COMPLETED PRN (16:45)
[2018-02-12] MEDS ORDERED: ONDANSETRON INJ 2 MG/ML 2 ML VIAL IV PRN ×2 (16:45→17:45)
[2018-02-12] MEDS ORDERED: ATROPINE SULFATE 0.1 MG/ML 5ML SYR IV PRN (16:45)
[2018-02-12] MEDS ORDERED: HYDROmorphone INJ 1 MG/ML SYR IV PRN (16:45)
[2018-02-12] MEDS ORDERED: EpHEDrine SULFATE INJ 50 MG/ML AMP IV PRN (16:45)
[2018-02-12] MEDS ORDERED: FENTANYL CITRATE INJ 50 MCG/1 ML 2 ML VIAL IV PRN (16:45)
[2018-02-12] MEDS ORDERED: GLYCOPYRROLATE INJ 0.2 MG/ML VIAL ONE (17:12)
[2018-02-12] MEDS ORDERED: NEOSTIGMINE METHYLSULFATE 5 MG/5 ML SYR ONE (17:12)
[2018-02-12] MEDS ORDERED: ROCURONIUM BROMIDE 10 MG/ML 5 ML VIAL IV ONE (17:12)
[2018-02-12] MEDS ORDERED: KETOROLAC TROMETHAMINE 30 MG/ML VIAL ONE (17:21)
--- NOTE | 2018-02-12 17:24 | [facility] Post Operative Brief Note ---
Immediate Operative Summary Operative Date Feb 12, 2018. Pre-Operative Diagnosis Acute appendicitis Post-Operative Diagnosis Ruptured appendix Procedure(s) Performed Laparoscopic appendectomy Surgeon Dr Pelayo Social Services Director Surgeon(s) Rianna Herman PA-C Estimated Blood Loss 5ml Findings Consistent with Post-Op Diagnosis Specimens a. appendix Drains PAULA into RLQ Anesthesia Type General Complication(s) none
--- NOTE | 2018-02-12 17:40 | [facility] Operative Report ---
Operative Report Operative Date Feb 12, 2018. Pre-Operative Diagnosis Acute appendicitis Post-Operative Diagnosis Ruptured appendix Procedure(s) Performed Laparoscopic appendectomy Surgeon Dr Pelayo Inspector Repairer [place] Surgeon(s) Rianna Herman PA-C Estimated Blood Loss 5ml Specimens a. appendix Drains PAULA into RLQ Anesthesia Type General Complication(s) none Description of Procedure After informed consent was obtained the patient was taken to the operating room and placed in supine position. After successful intubation a Gaytan catheter was placed and the left arm was tucked. I began by making a periumbilical incision with an 11 blade scalpel and carried this down through the soft tissue using electrocautery. The anterior rectus fascia was opened using electrocautery and 2 #0 Vicryl stay sutures were placed. The peritoneum was elevated using hemostats and incised under direct vision using a Metzenbaum scissor. A finger sweep was performed. A 12 mm Ruff trocar was placed and the abdomen was insufflated to 18 mmHg. A laparoscope was inserted and the abdomen was examined in 360. A suprapubic 5 mm port and a left lower quadrant 12 mm port were placed under direct vision. The patient was air planed to the left as well as placed in a slight Trendelenburg position. We began by looking in the right lower quadrant. We were able to readily identify the appendix and it was grossly inflamed with a perforation at it's midpoint. There is a small amount of purulent fluid in the right lower quadrant and the pelvis. We immediately irrigated and suctioned this out. I was able to use primarily blunt dissection to pull the appendix away from the right lower quadrant sidewall. I then made a small window in the mesentery of the appendix with a [place] dissector. I was then able to use a MOHIT brown cartridge stapler to transect the appendix its at its base with the cecum. I then used a second firing of the brown stapler to take down the mesentery of the appendix. This took 2 separate firings. It was then placed into an Endo Catch bag and removed from the camera port site. We thoroughly irrigated the right lower quadrant as well as the pelvis. There was adequate hemostasis. I ran the small bowel backwards from the terminal ileum for about 6 feet all of which was normal. All the peritoneal surfaces were normal. Small/ large bowel, liver, stomach etc. all appeared grossly normal. We did a final irrigation, placed a 10 flat Parker-Broussard drain into the right lower quadrant and then removed all the trochars and desufflated the abdomen. The fascia of the camera port as well as the left lower quadrant were closed using 0 Vicryl in [id number] fashion. Wounds were all irrigated and closed using 4-0 Monocryl. Marcaine was injected around them for postoperative analgesia and skin glue used as a dressing. The patient was awakened extubated and transferred to recovery in stable condition. My physician's event sales assistant was present through the entire case. She assisted with prepping the patient and helped with exposure for port placement, helped run the camera and helped with fascial/wound closure at the end of the procedure as well as dressing placement. I attest to the content of the Intraoperative Record and any orders documented therein. Any exceptions are noted below. I attest to the content of the Intraoperative Record and any orders documented therein. Any exceptions are noted below.
[2018-02-12] MEDS ORDERED: HYDROCODONE/ACETAMIN 5/325MG TAB PO PRN (18:00)
[2018-02-12] MEDS ORDERED: MoRPHine SULFATE 2 MG/ML CARP IV PRN (18:00)
[2018-02-12] MEDS ORDERED: MoRPHine SULFATE 4 MG/ML 1 ML CARP\\VIAL IV PRN (18:00)
--- NOTE | 2018-02-12 18:27 | Anesthesiology Progress Note ---
Anesthesia Post Op Note Date & Time Feb 12, 2018 at 18:27 Vital Signs Pain Intensity: 3 Vital Signs Past 12 Hours Date Time Temp Pulse Resp B/P (MAP) Pulse Ox O2 Delivery O2 Flow Rate FiO2 02/12/18 18:15 101 12 118/71 100 Room Air 02/12/18 18:05 88 18 111/67 100 Room Air 02/12/18 17:55 83 18 113/67 100 Oxymask 10 02/12/18 17:45 89 13 112/70 99 Oxymask 10 02/12/18 17:38 36.4 97 18 120/75 99 Oxymask 10 02/12/18 16:33 37.3 02/12/18 16:00 106 18 133/82 98 Room Air 02/12/18 15:21 101 02/12/18 15:18 91 20 119/72 98 Room Air 02/12/18 13:50 36.3 101 18 127/81 96 Room Air Notes Mental Status: alert / awake / arousable, participated in evaluation Pt Amnestic to Procedure: Yes Nausea / Vomiting: adequately controlled Pain: adequately controlled Airway Patency, RR, SpO2: stable & adequate BP & HR: stable & adequate Hydration State: stable & adequate Anesthetic Complications: no major complications apparent
[2018-02-12] MEDS: LACTATED RINGER'S 1000ML 1,000 ML IV SCH (19:37)
[2018-02-12] MEDS ORDERED: CHOLECALCIFEROL 1000 INTER.UNIT TAB PO SCH (21:00)
[2018-02-12] MEDS ORDERED: NON-FORMULARY MEDICATION (Melatonin (Kp Melatonin) 1 TAB) PO SCH (21:00)
[2018-02-12] MEDS: CEFOXITIN IV 2,000 MG in DEXTROSE 5% 50ML 50 ML IV SCH (21:44)
[2018-02-12] MEDS: HYDROCODONE/ACETAMIN 5/325MG TAB PO PRN (21:45)
[2018-02-13] MEDS: ACETAMINOPHEN IV 1,000 MG in EMPTY BAG 0 ML IV SCH ×2 (00:31→09:21)
[2018-02-13 03:33] VITALS: BP 104/63; PULSE 57; TEMP 36.4; O2SAT 96
[2018-02-13] MEDS: CEFOXITIN IV 2,000 MG in DEXTROSE 5% 50ML 50 ML IV SCH ×2 (03:34→09:48)
[2018-02-13] MEDS: LACTATED RINGER'S 1000ML 1,000 ML IV SCH ×2 (03:36→15:12)
[2018-02-13 06:02] LABS: BASO % 0.1 %; BASO ABS # 0.01 K/uL (0-0.2); HEMATOCRIT 33.8 % (42-52); HEMOGLOBIN 11.2 g/dL (14.0-18.0); IG# 0.04 K/uL (0.00-0.02); LYMPH % 5.5 %; LYMPH ABS # 0.77 K/uL (1.2-3.4); MEAN CELL VOLUME 84.3 fL (80-100); MEAN CORPUSCULAR HEMOGLOBIN 27.9 pg (25-34); MEAN CORPUSCULAR HGB CONC 33.1 g/dl (32-36); MEAN PLATELET VOLUME 9.5 fL (7.4-10.4); MONO % 6.6 %; MONO ABS # 0.92 K/uL (0.11-0.59); NEUT % 87.5 %; NEUT ABS # 12.16 K/uL (1.4-6.5); PLATELET COUNT 256 K/uL (130-400); RED CELL DISTRIBUTION WIDTH CV 14.5 % (11.5-14.5); RED CELL DISTRIBUTION WIDTH SD 45.2 fL (36.4-46.3)
[2018-02-13 06:44] LABS: CALCIUM 8.3 mg/dl (8.5-10.1); CREATININE 0.95 mg/dl (0.60-1.40); POTASSIUM 4.5 mmol/L (3.5-5.1)
--- NOTE | 2018-02-13 06:56 | Surgery Progress Note ---
Surgery Progress Note Date of Service Feb 13, 2018. Subjective Post OP Day: 1 + feeling well, + ambulating, + flatus, + pain controlled, + diet (Tolerating clears), No complaints, No bowel movement, No nausea, No vomiting Objective Vital Signs: Date Time Temp Pulse Resp B/P (MAP) Pulse Ox O2 Delivery O2 Flow Rate FiO2 02/13/18 03:33 36.4 57 17 104/63 (77) 96 Room Air 02/12/18 23:30 Room Air 02/12/18 22:24 36.8 75 18 112/67 (82) 96 Room Air 02/12/18 21:50 36.6 88 18 113/68 (83) 96 Room Air 02/12/18 20:50 36.8 93 18 132/82 (99) 97 Room Air 02/12/18 19:50 36.6 109 18 120/74 (89) 93 Room Air 02/12/18 19:40 95 Room Air 02/12/18 19:20 36.8 89 18 113/74 (87) 94 Room Air 02/12/18 18:56 36.9 103 16 114/74 (87) 95 Room Air 02/12/18 18:50 Room Air 02/12/18 18:45 87 16 112/70 98 Room Air 02/12/18 18:35 92 18 113/67 97 Room Air 02/12/18 18:25 37.0 91 16 116/70 97 Room Air 02/12/18 18:15 101 12 118/71 100 Room Air 02/12/18 18:05 88 18 111/67 100 Room Air 02/12/18 17:55 83 18 113/67 100 Oxymask 10 02/12/18 17:45 89 13 112/70 99 Oxymask 10 02/12/18 17:38 36.4 97 18 120/75 99 Oxymask 10 02/12/18 16:33 37.3 02/12/18 16:00 106 18 133/82 98 Room Air 02/12/18 15:21 101 02/12/18 15:18 91 20 119/72 98 Room Air 02/12/18 13:50 36.3 101 18 127/81 96 Room Air Physical Exam: PAULA drainage (minimal drainage this AM, serosanguinous) General Appearance: WD/WN, no apparent distress Head: normocephalic, atraumatic Respiratory/Chest: no respiratory distress, no accessory muscle use Abdomen: soft, no organomegaly, no pulsatile mass, + distended, + tenderness ( incisional TTP, Right sided TTP mild.) Incision(s): clean, dry, intact, no erythema, no drainage Laboratory Results: Results Past 24 Hours Test 02/12/18 14:20 02/12/18 14:30 02/12/18 14:50 02/13/18 05:26 Range/Units White Blood Count 14.55 13.90 4.8-10.8 K/uL Red Blood Count 4.80 4.01 4.7-6.1 M/uL Hemoglobin 13.4 11.2 14.0-18.0 g/dL Hematocrit 40.2 33.8 42-52 % Mean Corpuscular Volume 83.8 84.3 80-100 fL Mean Corpuscular Hemoglobin 27.9 27.9 25-34 pg Mean Corpuscular Hemoglobin Concent 33.3 33.1 32-36 g/dl Platelet Count 279 256 130-400 K/uL Mean Platelet Volume 9.3 9.5 7.4-10.4 fL Neutrophils (%) (Auto) 80.2 87.5 % Lymphocytes (%) (Auto) 9.6 5.5 % Monocytes (%) (Auto) 9.5 6.6 % Eosinophils (%) (Auto) 0.3 0.0 % Basophils (%) (Auto) 0.1 0.1 % Neutrophils # (Auto) 11.67 12.16 1.4-6.5 K/uL Lymphocytes # (Auto) 1.39 0.77 1.2-3.4 K/uL Monocytes # (Auto) 1.38 0.92 0.11-0.59 K/uL Eosinophils # (Auto) 0.05 0.00 0-0.5 K/uL Basophils # (Auto) 0.02 0.01 0-0.2 K/uL RDW Standard Deviation 44.0 45.2 36.4-46.3 fL RDW Coefficient of Variation 14.3 14.5 11.5-14.5 % Immature Granulocyte % (Auto) 0.3 0.3 % Immature Granulocyte # (Auto) 0.04 0.04 0.00-0.02 K/uL Sodium Level 134 135 136-145 mmol/L Potassium Level 3.7 4.5 3.5-5.1 mmol/L Chloride Level 102 105 98-107 mmol/L Carbon Dioxide Level 23 23 21-32 mmol/L Anion Gap 9.0 14.0 7.0 3-11 mmol/L Blood Urea Nitrogen 11 11 7-18 mg/dl Creatinine 0.86 0.95 0.60-1.40 mg/dl Est Creatinine Clear Calc Drug Dose 140.4 127.1 ml/min Estimated GFR () 136.8 125.8 Estimated GFR (Non- 118.0 108.5 BUN/Creatinine Ratio 13.3 11.5 10-20 Random Glucose 103 127 70-99 mg/dl Calcium Level 9.0 8.3 8.5-10.1 mg/dl Total Bilirubin 0.8 0.2-1 mg/dl Direct Bilirubin 0.2 0-0.2 mg/dl Aspartate Amino Transf (AST/SGOT) 10 15-37 U/L Alanine Aminotransferase (ALT/SGPT) 19 12-78 U/L Alkaline Phosphatase 114 45-117 U/L Total Protein 7.9 6.4-8.2 gm/dl Albumin 3.9 3.4-5.0 gm/dl Lipase 66 73-393 U/L Urine Color DK YELLOW Urine Appearance CLOUDY CLEAR Urine pH 6.5 4.5-7.5 Urine Specific [place] 1.027 1.000-1.030 Urine Protein 1+ NEG Urine Glucose (UA) NEG NEG Urine Ketones 3+ NEG Urine Occult Blood TRACE NEG Urine Nitrite NEG NEG Urine Bilirubin NEG NEG Urine Urobilinogen NEG NEG Urine Leukocyte Esterase NEG NEG Urine WBC (Auto) 1-5 0-5 /hpf Urine RBC (Auto) 10-30 0-4 /hpf Urine Hyaline Casts (Auto) 5-10 0-5 /lpf Urine Epithelial Cells (Auto) 20-30 0-5 /lpf Urine Bacteria (Auto) NEG NEG Bedside Hemoglobin 13.3 14.0-18.0 g/dl Bedside Hematocrit 39 42-52 % Bedside Sodium 137 135-144 mEq/L Bedside Potassium 3.8 3.3-5.0 mEq/L Bedside Chloride 102 101-112 mEq/L Bedside Total CO2 26 24-31 mEq/l Bedside Blood Urea Nitrogen 12 7-18 mg/dl Bedside Creatinine 0.8 0.6-1.3 mg/dl Bedside Glucose (other) 105 70-99 mg/dl Bedside Ionized Calcium (Isabel) 1.14 1.12-1.32 mmol/l Influenza Type A Antigen Neg for Influ A NEG Influenza Type B Antigen Neg for Influ B NEG Assessment & Plan POD #1 s/p laparoscopic appendectomy for ruptured appendix. pain controlled, tolerating clears, no N/V, urinating okay. PAULA minimal drainage, serosang, keep for now, likely pull prior to d/c WBC 13.9 this AM, continue IV abx. will try full liquids for breakfast, ADAT. Possible d/c later today if tolerating foods.
--- NOTE | 2018-02-13 07:01 | Discharge Instructions ---
Discharge Instructions Date of Service Feb 13, 2018. Admission Reason for Admission: Appendicitis Discharge Discharge Diagnosis / Problem: Appendicitis Discharge Goals Goal(s): Decrease discomfort, Improve function Activity Recommendations Activity Limitations: as noted below Lifting Limitations: no more than 10 pounds, until after follow-up appointment Exercise/Sports Limitations: until after follow-up appointment May Resume Sexual Activity: after follow-up appointment Shower/Bathe: tomorrow Driving or Machine Use: resume 3 days after discharge (Please do not drive while using narcotic pain medication) . Instructions / Follow-Up Instructions / Follow-Up You have surgical glue covering your incisions. Please allow this to fall off on its own. You have been prescribed pain medication to take as needed for pain relief. Please follow-up with Dr. Pelayo in 1-2 weeks. Contact our office at [phone] to schedule an appointment if you have not done so already. Please contact our office with any further questions or concerns. [facility]. [address] [place] [address]. Current Hospital Diet Patient's current hospital diet: Full Liquid Diet Discharge Diet Recommended Diet: Regular Diet Procedures Procedures Performed: Laparoscopic appendectomy Pending Studies Studies pending at discharge: yes List of pending studies: pathology Medical Emergencies . Who to Call and When: Medical Emergencies: If at any time you feel your situation is an emergency, please call 911 immediately. . Non-Emergent Contact Non-Emergency issues call your: Primary Care Provider, Surgeon Call Non-Emergent contact if: you have a fever, temperature is above 101.5, your pain is not controlled, your pain is worsening, wound has increased drainage, wound has increased redness . "Provider Documentation" section prepared by Hever Woodard. . [place] Drug Monitoring Program Search Results: patient reviewed within database, no issues identified
[2018-02-13 07:37] VITALS: BP 100/60; PULSE 63; TEMP 36.5; O2SAT 98
[2018-02-13] MEDS: HYDROCODONE/ACETAMIN 5/325MG TAB PO PRN (07:40)
[2018-02-13] MEDS ORDERED: INFLUENZA VIRUS QUAD VACCINE 0.5 ML SYR IM. ONE (08:00)
[2018-02-13] MEDS ORDERED: INFLUENZA ADMINISTRATION CHARGE ONE (08:00)
[2018-02-13 08:20] VITALS: O2SAT 98
[2018-02-13] MEDS ORDERED: AMOX875T PO (10:30)
[2018-02-13] MEDS ORDERED: HYDR-5688 PO (10:30)
--- NOTE | 2018-02-13 11:03 | Anesthesiology Progress Note ---
Anesthesia Post Op Note Date & Time Feb 13, 2018 at 11:02 Vital Signs Pain Intensity: 4.0 Vital Signs Past 12 Hours Date Time Temp Pulse Resp B/P (MAP) Pulse Ox O2 Delivery O2 Flow Rate FiO2 02/13/18 08:20 98 Room Air 02/13/18 07:37 36.5 63 16 100/60 (73) 98 Room Air 02/13/18 07:20 Room Air 02/13/18 03:33 36.4 57 17 104/63 (77) 96 Room Air 02/12/18 23:30 Room Air Notes Mental Status: alert / awake / arousable, participated in evaluation Pt Amnestic to Procedure: Yes Nausea / Vomiting: adequately controlled Pain: adequately controlled Airway Patency, RR, SpO2: stable & adequate BP & HR: stable & adequate Hydration State: stable & adequate Anesthetic Complications: no major complications apparent
[2018-02-13 11:45] VITALS: BP 108/66; PULSE 68; TEMP 36.6; O2SAT 96
[2018-02-13 12:46] VITALS: BP 108/66; PULSE 68; TEMP 36.6; O2SAT 96
[2018-02-13] MEDS ORDERED: KETOROLAC TROMETHAMINE 30 MG/ML VIAL IV. STA (13:14)
[2018-02-13] MEDS ORDERED: NURSING VERBAL MED ORDER ONE (13:15)
[2018-02-13 15:26] VITALS: BP 113/65; PULSE 84; TEMP 36.7; O2SAT 96
--- NOTE | 2018-02-15 06:57 | Discharge Summary ---
Discharge Summary Date of Service Feb 15, 2018. Admission Date/Reason Feb 12, 2018 at 16:17 Appendicitis. Discharge Date/Disposition Feb 13, 2018 Home Diagnosis Principal Diagnosis: acute appendicitis Procedure(s) Performed laparoscopic appendectomy Medication Reconciliation Augmentin 875mg PO BID x 7 days Disp: 14 tabs. Mineral 5mg/325mg 1-2 tabs PO q4h PRN for pain x 3 day. Disp: 30 tabs. Admission Physical Exam As per Admitting History & Physical. Hospital Course 02/12/18: Patient presented to the ED this afternoon due to mid abdominal pain eventually localizing in his RLQ. WBC 14k. CT showed findings for acute appendicitis. The decision was made at this time to proceed with laparoscopic appendectomy, possible open in the OR. The procedure was performed laparoscopically successfully without any complications. The patient was then admitted on observation for the night. 02/13/18: Feeling well this AM, urinating okay, pain controlled, no complaints. Tolerating clear liquid diet. At this time diet was advanced and patient was discharged later in the day with instructions to f/u with Dr. Pelayo in 1-2 weeks. He was discharged with antibiotics and pain medication. Discharge Instructions Please refer to the electronic Patient Visit Report (Discharge Instructions) for additional information.
== END 2018-02-13 15:50 | disposition home or self-care (01) ==
LOC: C.EDB 13:41 → C.MSN 16:17 → ENRESERV 18:06
PROVIDERS: ADMIT Surgery; ATTEND Surgery
DX: K35.2 Acute appendicitis with generalized peritonitis (principal); Z88.6 Allergy status to analgesic agent; Z80.9 Family history of malignant neoplasm, unspecified; Z83.3 Family history of diabetes mellitus; Z82.49 Family history of ischemic heart disease and other diseases of the circulatory system

== ENCOUNTER → 2018-03-06 | Outpatient (CLI) | payer OTHER ==
[~2018-03-06] MED LIST changes: +IBUP-1050 PO
[2018-03-06 13:04] LABS: BASO % 0.2 %; BASO ABS # 0.03 K/uL (0-0.2); EOS % 2.1 %; EOS ABS # 0.27 K/uL (0-0.5); HEMATOCRIT 41.1 % (42-52); HEMOGLOBIN 13.5 g/dL (14.0-18.0); IG# 0.02 K/uL (0.00-0.02); LYMPH ABS # 1.91 K/uL (1.2-3.4); MEAN CELL VOLUME 83.7 fL (80-100); MEAN CORPUSCULAR HEMOGLOBIN 27.5 pg (25-34); MEAN CORPUSCULAR HGB CONC 32.8 g/dl (32-36); MEAN PLATELET VOLUME 9.9 fL (7.4-10.4); MONO % 15.4 %; MONO ABS # 1.95 K/uL (0.11-0.59); NEUT % 67.1 %; NEUT ABS # 8.52 K/uL (1.4-6.5); PLATELET COUNT 472 K/uL (130-400); RED CELL DISTRIBUTION WIDTH CV 13.9 % (11.5-14.5); RED CELL DISTRIBUTION WIDTH SD 43.2 fL (36.4-46.3)
[2018-03-06 13:33] LABS: ALBUMIN 3.9 gm/dl (3.4-5.0); ALT/SGPT 17 U/L (12-78); AST/SGOT 10 U/L (15-37); BLOOD UREA NITROGEN 17 mg/dl (7-18); CALCIUM 8.8 mg/dl (8.5-10.1); CARBON DIOXIDE 26 mmol/L (21-32); GLUCOSE 141 mg/dl (70-99); POTASSIUM 3.5 mmol/L (3.5-5.1); SODIUM 133 mmol/L (136-145)
[2018-03-06 13:35] LABS: ALKALINE PHOSPHATASE 111 U/L (45-117); TOTAL PROTEIN 8.1 gm/dl (6.4-8.2)
== END | disposition home or self-care (01) ==
LOC: C.LABPVFM 08:22
PROVIDERS: ATTEND Nurse Practitioner Family
DX: R19.7 Diarrhea, unspecified (principal)

== ENCOUNTER 2018-03-24 21:48 | Emergency (ER) | payer OTHER ==
[~2018-03-24] VITALS: Ht 182.9 cm; Wt 73.6 kg
[2018-03-24 22:03] VITALS: TEMP 36.6; Ht 182.9 cm; Wt 73.6 kg
[2018-03-24] MEDS ORDERED: KETOROLAC TROMETHAMINE 60 MG/2 ML VIAL IM STA (22:15)
--- NOTE | 2018-03-24 22:34 | DIAGNOSTIC IMAGING REPORT ---
RIGHT SHOULDER 3 VIEWS CLINICAL HISTORY: Right shoulder pain. FINDINGS: 3 views of the right shoulder are obtained. No prior studies are available for comparison at the time of dictation. The skeletal structures are well mineralized. No fracture or dislocation is identified. The glenohumeral and acromioclavicular joints appear preserved. The overlying soft tissues are within normal limits. Imaged right upper lobe lung parenchyma appears clear. IMPRESSION: Unremarkable radiographic assessment of the right shoulder. Electronically signed by: Sohan Delacruz M.D. 03/24/2018 10:33 PM Dictated Date/Time: 03/24/2018 10:32 PM
--- NOTE | 2018-03-24 22:54 | DIAGNOSTIC IMAGING REPORT ---
CT SCAN OF THE CERVICAL SPINE CLINICAL HISTORY: Right shoulder pain. COMPARISON STUDY: No priors. TECHNIQUE: CT scan of the cervical spine is performed from the skull base to the upper thoracic spine. Images are reviewed in the axial, sagittal, and coronal planes. IV contrast was not administered for this examination. A dose lowering technique was utilized adhering to the principles of ALARA. CT DOSE: 234.99 mGy.cm FINDINGS: Skeletal structures: The skeletal structures are well mineralized. There is no evidence of fracture or subluxation involving the cervical spine. Vertebral body height and alignment are maintained. There is straightening of the cervical lordosis. The odontoid process and lateral masses are intact. The atlantoaxial articulation is preserved. The spinous processes appear intact. No significant neural foraminal stenosis is identified throughout the cervical spine. Intervertebral discs: The disc spaces are well maintained. Central canal: Widely patent. Soft tissues: The prevertebral and paraspinous soft tissues are within normal limits. Shotty cervical lymph nodes are noted. Calvarium: The visualized calvarium at the skull base appears intact. Brain parenchyma: Partially visualized brain parenchyma the skull base is within normal limits. Sinuses and mastoids: There is a tiny retention cyst in the left maxillary antrum. The visualized paranasal sinuses are otherwise clear. The mastoid air cells are well pneumatized. Lung apices: Clear as visualized. IMPRESSION: There is no evidence of fracture or subluxation involving the cervical spine. Electronically signed by: Sohan Delacruz M.D. 03/24/2018 10:53 PM Dictated Date/Time: 03/24/2018 10:50 PM
[2018-03-24] MEDS ORDERED: PRED50TA PO (23:26)
[2018-03-24 23:35] VITALS: BP 118/74; PULSE 64; O2SAT 97
--- NOTE | 2018-03-25 00:46 | EMERGENCY ROOM VISIT NOTE ---
History Report prepared by Sparkle: Derick Jorge Under the Supervision of: Dr. Fernie Myrick D.O. First contact with patient: 22:09 Chief Complaint: ARM PAIN Stated Complaint: PAIN IN SHOULDER DOWN ARM, RIGHT History of Present Illness The patient is a 27 year old male who presents to the Emergency Room with complaints of waxing and waning pain in the right upper extremity that began 1 week ago. The patient sates the the pain starts in the right shoulder and radiates the whole way down the right arm. He has experienced weakness in the right extremity as well but that has resolved. Weakness does come and go. Pain is sharp and burning.. The patient states that Ibuprofen and Aleve have both improved his symptoms, but only for shot periods of time. He is not having any weakness currently. There is no pain with ROM of the neck. He denies any headache, change in vision, fevers, chest pain, shortness of breath, nausea, vomiting, diarrhea, pain with urination, and melena. Source of History: patient Onset: 1 week ago Position: shoulder (right), arm (right) Timing: waxes/wanes Modifying Factors (Relieving): ibuprofen (and Aleve) Associated Symptoms: + weakness (not currently) Review of Systems See HPI for pertinent positives & negatives. A total of 10 systems reviewed and were otherwise negative. Past Medical & Surgical Medical Problems: (1) Kidney stone (2) Migraines Family History Cancer Diabetes mellitus Hypertension Kidney stones Social History Smoking Status: Never Smoker Alcohol Use: occasionally Drug Use: none Marital Status: single Housing Status: lives with family Occupation Status: student Current/Historical Medications Scheduled Cholecalciferol (Vitamin D), 1 CAP PO HS Melatonin (Kp Melatonin), 1 TAB PO HS Multivitamin (Multivitamin), 1 TAB PO HS Prednisone (Prednisone), 50 MG PO DAILY Miscellaneous Medications Ibuprofen (Advil), 200 MG PO Magnesium Oxide (Mg Supplement (Magnesium) Vitamins C & E (Vitamin C) Allergies Coded Allergies: Codeine (Verified Adverse Reaction, Unknown, VOMITING AND ITCHING, 03/24/18 ) Physical Exam Vital Signs Date Time Temp Pulse Resp B/P (MAP) Pulse Ox O2 Delivery O2 Flow Rate FiO2 03/24/18 23:35 64 16 118/74 97 Room Air 03/24/18 22:03 36.6 99 18 119/81 96 Room Air Physical Exam GENERAL: Sitting up in bed, alert, well appearing, well nourished, no distress, non-toxic EYE EXAM: normal conjunctiva. OROPHARYNX: no exudate, no erythema, lips, buccal mucosa, and tongue normal and mucous membranes are moist NECK: supple, no nuchal rigidity, no adenopathy, non-tender LUNGS: Clear to auscultation. Normal chest wall mechanics HEART: no murmurs, S1 normal and S2 normal ABDOMEN: abdomen soft, non-tender, normo-active bowel sounds, no masses, no rebound or guarding. BACK: Back is symmetrical on inspection and there is no deformity, no midline tenderness, no CVA tenderness. There is tenderness to palpation to the right trapezius and medial to the right scapula. SKIN: no rashes and no bruising UPPER EXTREMITIES: flexion/extension of shoulder, elbow, wrist, and grasps, abduction are 5/5 bilaterally on the right. Radial pulses are 2/4 gross sensation is intact. LOWER EXTREMITIES: No pitting edema. NEURO EXAM: Normal sensorium, cranial nerves II-XII grossly intact Medical Decision & Procedures ER Provider Diagnostic Interpretation: Radiology results as stated below per my review and the radiologist's interpretation: CT SCAN OF THE CERVICAL SPINE CLINICAL HISTORY: Right shoulder pain. COMPARISON STUDY: No priors. TECHNIQUE: CT scan of the cervical spine is performed from the skull base to the upper thoracic spine. Images are reviewed in the axial, sagittal, and coronal planes. IV contrast was not administered for this examination. A dose lowering technique was utilized adhering to the principles of ALARA. CT DOSE: 234.99 mGy.cm FINDINGS: Skeletal structures: The skeletal structures are well mineralized. There is no evidence of fracture or subluxation involving the cervical spine. Vertebral body height and alignment are maintained. There is straightening of the cervical lordosis. The odontoid process and lateral masses are intact. The atlantoaxial articulation is preserved. The spinous processes appear intact. No significant neural foraminal stenosis is identified throughout the cervical spine. Intervertebral discs: The disc spaces are well maintained. Central canal: Widely patent. Soft tissues: The prevertebral and paraspinous soft tissues are within normal limits. Shotty cervical lymph nodes are noted. Calvarium: The visualized calvarium at the skull base appears intact. Brain parenchyma: Partially visualized brain parenchyma the skull base is within normal limits. Sinuses and mastoids: There is a tiny retention cyst in the left maxillary antrum. The visualized paranasal sinuses are otherwise clear. The mastoid air cells are well pneumatized. Lung apices: Clear as visualized. IMPRESSION: There is no evidence of fracture or subluxation involving the cervical spine. Electronically signed by: oShan Delacruz M.D. 03/24/2018 10:53 PM Dictated Date/Time: 03/24/2018 10:50 PM RIGHT SHOULDER 3 VIEWS CLINICAL HISTORY: Right shoulder pain. FINDINGS: 3 views of the right shoulder are obtained. No prior studies are available for comparison at the time of dictation. The skeletal structures are well mineralized. No fracture or dislocation is identified. The glenohumeral and acromioclavicular joints appear preserved. The overlying soft tissues are within normal limits. Imaged right upper lobe lung parenchyma appears clear. IMPRESSION: Unremarkable radiographic assessment of the right shoulder. Electronically signed by: Sohan Delacruz M.D. 03/24/2018 10:33 PM Dictated Date/Time: 03/24/2018 10:32 PM Medications Administered Medications (Trade) Dose Ordered Sig/Tosha Route Start Time Stop Time Status Last Admin Dose Admin Ketorolac Tromethamine (Toradol Inj) 60 mg NOW STAT IM 03/24/18 22:15 03/24/18 22:17 DC 03/24/18 22:35 60 MG Prednisone (PredniSONE TAB) 60 mg STK-MED ONCE .ROUTE 03/24/18 22:29 03/24/18 22:30 DC 03/24/18 22:32 50 MG ED Course ED COURSE: Vital signs were reviewed and showed normal vitals. The patients medical record was reviewed The above diagnostic studies were performed and reviewed. ED treatments and interventions as stated above. 2209: The patient was evaluated in room C5. A complete history and physical examination was performed. 2215: Ordered 60 mg IM Toradol, 50 mg PO Prednisone. 2324: Upon reevaluation, the patient's arm pain is better.I discussed my findings with the patient and he understands and agrees with the treatment plan. Based on the patients age, coexisting illnesses, exam and lab findings the decision to treat as an outpatient was made. The patient remained stable while under my care. The patient appeared well at the time of discharge. Medical Decision Differential diagnosis: Etiologies such as fracture, dislocation, neurovascular compromise, compartment syndrome, soft tissue injury, as well as others were entertained. Patient is a 27-year-old male who presents to ER for pain radiating from his right shoulder down his right arm with intermittent weakness. Currently has no weakness. He is neurologically intact on exam. On exam he does have reproducible tenderness. He was given IM Toradol and steroids and did have improvement of his symptoms. X-rays of the shoulder and CT of the neck were fairly unremarkable for any acute pathology. Patient was updated at bedside. He was discharged with steroids to follow-up with PCP as an outpatient. I do favor this likely a cervical radiculopathy.Discussed with Pt concerning signs and symptoms to watch out for. Pt was instructed to follow up with their PCP and discussed with the patient their option to return to the ED at anytime for persistent or worsening symptoms. The appropriate anticipatory guidance and out- patient management, including indications for return to the emergency department , were explained at length to the patient and understood. Medication Reconcilliation Current Medication List: was personally reviewed by me Blood Pressure Screening Patient's blood pressure: Normal blood pressure Impression Primary Impression: Radiculopathy of cervical region Scribe Attestation The scribe's documentation has been prepared under my direction and personally reviewed by me in its entirety. I confirm that the note above accurately reflects all work, treatment, procedures, and medical decision making performed by me. Departure Information Dispostion Home / Self-Care Prescriptions Prednisone (PREDNISONE) 50 Mg Tab 50 MG PO DAILY for 4 Days, TAB Prov: Fernie Myrick, 03/24/18 Referrals Cinthya Cardeans M.D. (PCP) Forms HOME CARE DOCUMENTATION FORM, IMPORTANT VISIT INFORMATION Patient Instructions My [facility] Additional Instructions Please follow up with your primary care doctor with in the next 24 hours. Any worsening of your symptoms, please return to the ED immediately. This includes any fevers greater than 100.4, worsening pain, chest pain, any weakness of your arm shortness breath, persistent nausea, vomiting, unable to eat or drink, or any other concerning signs or symptoms from your standpoint. Please take Motrin or Tylenol as needed for pain. Please take steroids as prescribed.
== END 2018-03-24 23:36 | disposition home or self-care (01) ==
LOC: C.EDB 21:50 → C.EDC 23:36
DX: M54.12 Radiculopathy, cervical region (principal); M79.601 Pain in right arm